=== PATIENT | female | born 1980 | race African-American/Black ===

== ENCOUNTER 2017-01-27 17:02 | Emergency (ER) | payer SELFPAY ==
[~2017-01-27] VITALS: Ht 175.3 cm; Wt 76.0 kg
[2017-01-27] MEDS ORDERED: HYDROCODONE/ACETAMINOPHEN 5/325MG TABLET PO ONE (18:00)
[2017-01-27 19:40] VITALS: BP 130/80
== END 2017-01-27 20:07 | disposition home or self-care (01) ==
LOC: ER 17:03
DX: S62.615A Displaced fracture of proximal phalanx of left ring finger, initial encounter for closed fracture (principal); X58.XXXA Exposure to other specified factors, initial encounter; Y93.89 Activity, other specified; Y99.8 Other external cause status; Y92.89 Other specified places as the place of occurrence of the external cause
CPT/HCPCS: 26750; 73140; 99284

== ENCOUNTER 2021-01-05 13:03 | Emergency (ER) | payer MEDICAID ==
[~2021-01-05] VITALS: Ht 165.1 cm; Wt 66.0 kg
[2021-01-05 13:04] VITALS: BP 117/61
[2021-01-05] MEDS ORDERED: SODIUM CHLORIDE 0.9% 1,000 ML IV ONE (14:00)
== END 2021-01-05 15:51 | disposition left against medical advice (07) ==
LOC: ER 13:03
DX: R40.4 Transient alteration of awareness (principal)
CPT/HCPCS: 70450; 99284; J7030